=== PATIENT | female | born 1975 | race Caucasian/White ===

== ENCOUNTER 2017-05-30 18:55 | Emergency (ER) | payer OTHER ==
[2017-05-30] MEDS ORDERED: CYMBALTA60 M1 PO (19:07)
[2017-05-30] MEDS ORDERED: SYNTHROID25 MCG PO (19:07)
[2017-05-30] MEDS ORDERED: TRAZODONE HCL300 M1 PO (19:08)
[2017-05-30 19:34] LABS: ABSOLUTE BASOPHIL COUNT 0.1 /CUMM (0.0-0.2); ABSOLUTE EOSINOPHIL COUNT 0 /CUMM (0.0-0.7); ABSOLUTE LYMPH COUNT 2.4 /CUMM (1.2-3.4); ABSOLUTE MONOCYTE COUNT 1.1 /CUMM (0.10-0.60); BASOPHIL % 0.4 % (0.0-2.0); EOSINOPHIL % 0.1 % (0-5); GRANULOCYTE % 79.6 % (42.2-75.2); HEMATOCRIT 43.9 % (37-47); MEAN CORPUSCULAR HGB CONC 33.3 G/DL (33.0-37.0); MEAN CORPUSCULAR VOLUME 93.1 FL (81.0-99.0); MEAN PLATELET VOLUME 6.9 FL (7.4-10.4); PLATELET COUNT 600 /CUMM (130-400); RBC DISTRIBUTION WIDTH 13.6 % (11.5-14.5); RED BLOOD CELL CT 4.72 /CUMM (4.20-5.40); WHITE BLOOD CELL COUNT 17.5 /CUMM (4.8-10.8)
--- NOTE | 2017-05-30 20:05 | ED PSYCHIATRIC COMPLAINT ---
See Addendum History of Present Illness General Chief Complaint: ETOH/Drug Related Complaint Stated Complaint: PT WAS SENT BY [facility] Source: patient Exam Limitations: no limitations Vital Signs & Intake/Output Vital Signs & Intake/Output Vital Signs Date Time Temp Pulse Resp B/P B/P Pulse O2 O2 Flow FiO2 Mean Ox Delivery Rate 05/31 0624 98.5 82 18 135/68 96 05/31 0530 82 18 97 Room Air 05/31 0330 98.3 83 16 116/63 05/31 0330 98.3 83 18 11663 98 Room Air 05/30 2330 98.7 95 16 123/72 05/30 2330 98.7 95 16 123/72 94 Room Air 05/30 2049 98.2 82 18 159/79 98 Room Air 05/30 2030 97.2 89 20 172/109 05/30 1937 Room Air 05/30 1909 97.2 89 20 172/107 97 ED Intake and Output 05/31 0000 05/30 1200 Intake Total Output Total Balance Patient 105 lb Weight Allergies Coded Allergies: No Known Allergies (05/30/17) Reconcile Medications Duloxetine HCl (Cymbalta) 60 MG CAPSULE.DR 1 CAP PO DAILY ANXIETY (Reported) Levothyroxine Sodium (Synthroid) 25 MCG TABLET 1 TAB PO DAILY THYROID ( Reported) Trazodone HCl 300 MG TABLET 1 TAB PO QPM SLEEP (Reported) Triage Note: PER PT WAS AT [facility] "BLEW TOO HIGH" LAST DRINK 0700, LEFT BELONGINGS AT [facility], LMP 2 WEEKS AGO Triage Nurses Notes Reviewed? yes Onset: Afternoon Duration: hour(s):, constant, continues in ED Timing: recent history Severity: moderate Associated Symptoms: anxiety LMP (ages 10-50): date, unknown (2 weeks ago) : No Patient currently breastfeeds: No HPI: The patient presented to [facility] for detox earlier in the day and was found to be intoxicated and referred for evaluation. She denies DT or alcohol withdrawal seizures. Patient denies fever chills nausea vomiting diarrhea abdominal pain chest pain shortness breath headache dysuria rash bleeding suicidal ideation homicidal ideation hallucination. (Francisco PRATHER,Víctor) Past History Travel History Traveled to [place] past 21 day No Medical History Any Pertinent Medical History? see below for history Neurological: NONE EENT: NONE Cardiovascular: NONE Respiratory: NONE Gastrointestinal: NONE Hepatic: NONE Renal: NONE Musculoskeletal: NONE Psychiatric: anxiety Endocrine: THYROID Surgical History Surgical History: non-contributory Psychosocial History What is your primary language Yi Tobacco Use: Current Daily Use Daily Tobacco Use Amount/Type: => 5 Cigarettes daily ETOH Use: heavy use Family History Hx Contributory? No (Víctor Singh MD) Review of Systems Review of Systems Constitutional: Reports: no symptoms. EENTM: Reports: no symptoms. Respiratory: Reports: no symptoms. Cardiovascular: Reports: no symptoms. GI: Reports: no symptoms. Genitourinary: Reports: no symptoms. Musculoskeletal: Reports: no symptoms. Skin: Reports: no symptoms. Neurological/Psychological: Reports: see HPI, anxiety, emotional problems. Hematologic/Endocrine: Reports: no symptoms. Immunologic/Allergic: Reports: no symptoms. All Other Systems: Reviewed and Negative (Víctor Singh MD) Physical Exam Physical Exam General Appearance: well developed/nourished, alert, awake, anxious, mild distress Head: atraumatic, normal appearance Eyes: Bilateral: normal appearance, PERRL, EOMI. Ears, Nose, Throat: normal pharynx, normal ENT inspection, hearing grossly normal Neck: normal inspection, supple, full range of motion, no midline tenderness Respiratory: normal breath sounds, chest non-tender, no respiratory distress, quiet respiration, lungs clear Cardiovascular: regular rate/rhythm, normal peripheral pulses, norml femoral pulses equa Gastrointestinal: normal bowel sounds, soft, non-tender, no organomegaly Extremities: normal range of motion, no ligament instability Neurological/Psychiatric: no motor/sensory deficits, awake, alert, anxious, sheet sewer II-XII nml as tested, oriented x 3 Appearance/Memory/Insight: disheveled Behavoir/Eye Contact/Speech: cooperative, normal speech Thoughts/Hallucinations: no apparent hallucination Skin: intact, normal color, warm/dry SAD PERSONS Done? patient not suicidal (Víctor Singh MD) Progress Differential Diagnosis: drug intoxication, drug overdose, drug withdrawal, hypoglycemia Plan of Care: Orders Procedure Date/time Status Regular Diet 05/31 B Active Add-on Test (ER Only) 05/316 Active CIWA 05/30 2001 Active URINALYSIS 05/30 1921 Complete URINE 05/30 1911 Complete URINE DRUG SCREEN FOR ER ONLY 05/30 1911 Complete TSH REFLEX 05/30 1911 Complete LIPASE 05/30 1911 Complete ETHANOL 05/30 1911 Complete COMPREHENSIVE METABOLIC PANEL 05/30 1911 Complete CBC WITHOUT DIFFERENTIAL 05/30 1911 Complete AMYLASE 05/30 1911 Complete Current Medications Sig/Daron Start time Last Medication Dose Stop Time Status Admin Gabapentin 300 MG Q8 05/30 2199 UNVr 05/31 (Neurontin) 0634 Trazodone HCl 300 MG QPM 05/30 2199 UNVr 05/30 (Desyrel) 2099 Lorazepam 1 MG Q2P PRN 05/30 2099 UNVr 05/30 (Ativan) 2100 Lorazepam 2 MG Q2 PRN 05/30 2099 UNVr (Ativan) Duloxetine HCl 60 MG DAILY 05/30 1999 UNVr 05/30 (Cymbalta) 2099 Levothyroxine Sodium 0.025 MG DAILY 05/30 1999 UNVr 05/30 (Synthroid) 2099 Laboratory Tests 05/30/171921: Serum Alcohol 104.0 05/30/171921: Anion Gap 15, Estimated GFR > 60, BUN/Creatinine Ratio 24.3, Glucose 78, Calcium 9.9, Total Bilirubin 0.3, AST 36, ALT 33, Alkaline Phosphatase 92, Total Protein 7.9, Albumin 5.0, Globulin 2.9, Albumin/Globulin Ratio 1.7, Amylase 77, Lipase 58, TSH &T3 &Free T4 Intrp 1.540, CBC w Diff MAN DIFF ORDERED, RBC 4.72, MCV 93.1, MCH 31.0, MCHC 33.3, RDW 13.6, MPV 6.9 L, Gran % 79.6 H, Lymphocytes % 13.8 L, Monocytes % 6.1, Eosinophils % 0.1, Basophils % 0.4, Absolute Granulocytes 14.0 H, Segmented Neutrophils 80 H, Absolute Lymphocytes 2.4, Lymphocytes 14 L, Monocytes 6, Absolute Monocytes 1.1 H, Absolute Eosinophils 0, Absolute Basophils 0.1, Platelet Estimate INCREASED, Normocytic RBCs VERIFIED , Normochromic RBCs VERIFIED, Fld Total RBCs Counted 100, Urine Opiates Screen < 100.00, Methadone Screen < 40, Barbiturate Screen < 60, Ur Phencyclidine Scrn < 6.00, Amphetamines Screen 200, U Benzodiazepines Scrn < 85, Urine Cocaine Screen < 50, Urine Cannabis Screen 40.90, Urinalysis HEAVY H, Urine Color YEL, Urine Clarity CLDY H, Urine pH 6.0, Ur Specific [place] >= 1.030, Urine Protein TRACE H, Urine Ketones NEG, Urine Nitrite NEG, Urine Bilirubin NEG, Urine Urobilinogen 0.2, Ur Leukocyte Esterase NEG, Ur Microscopic SEDIMENT EXAMINED, Urine RBC 1-3, Urine Mucus FEW, Urine Hemoglobin TRACE-INTACT, Urine Glucose NEG , Urine Test NEGATIVE Hand-Off Endorsed To: Prem Mcqueen MD Endorsed Time: 0700 Pending: other ([facility]) (Víctor Singh MD) Comments: 05/31/2017 7:13:29 AM patient 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 05/31/2017 7:40:28 AM patient appears comfortable and good-natured. She offers no complaint at this time. She intends on reporting to [facility] after discharge. (Charisse PRATHER,Prem Harden) Departure Departure Condition: Stable Referrals: Patient Has No Primary Care Dr (PCP/Family) Departure Forms: General Discharge Information (Víctor Singh MD) Departure Disposition: HOME OR SELF CARE Clinical Impression Primary Impression: Alcohol dependence with withdrawal Qualifiers: Complication of substance-induced condition: uncomplicated Qualified Code: F10.230 - Alcohol dependence with withdrawal, uncomplicated Secondary Impressions: Leukocytosis Qualifiers: Leukocytosis type: unspecified Qualified Code: D72.829 - Elevated white blood cell count, unspecified Additional Instructions: Report to [facility] as soon as possible. Notify your primary care doctor of this emergency Department visit and treatment plan (do not currently have a primary care physician and takes contact Organ primary care practice at [phone]). Return if any concerns or sudden worsening. Please note that there might be incidental findings in your evaluation that are unrelated to the current emergency department visit. Please notify your primary care doctor about this emergency department visit in order to obtain and review all of the testing performed so that these incidental findings can be monitored as needed. If you had an x-ray performed, please understand that some fractures may not be seen on the initial set of x-rays. If your symptoms persist you might need a repeat set of x-rays to check for such a fracture. If you had a laceration evaluated, please understand that foreign bodies such as glass or wood may not be visible to the naked eye or on plain x-rays. If the wound becomes red, swollen, increasingly more painful or if there is any drainage from the wound, please have it reevaluated by a physician for the possibility of a retained foreign body. If you're unable to follow up as outlined in the discharge instructions please return to the emergency department. Thank you for choosing the [facility] Emergency Department for your care. It was a pleasure to serve you today. Prem Mcqueen M.D. [facility] (Charisse PRATHER,Prem Harden)
[2017-05-31 08:17] VITALS: BP 159/92
== END 2017-05-31 08:32 ==
LOC: ERH 18:55
PROVIDERS: Emergency Medicine
DX: F10.239 Alcohol dependence with withdrawal, unspecified (principal); D72.829 Elevated white blood cell count, unspecified
CPT/HCPCS: 80307; 81001; 81025; G0480